=== PATIENT | female | born 1990 | race African-American/Black ===

== ENCOUNTER 2017-05-22 18:09 | Emergency (ER) | payer OTHER ==
[~2017-05-22] VITALS: Ht 165.1 cm; Wt 108.9 kg
[2017-05-22] MEDS ORDERED: ACETAMINOPHEN 500 MG TABLET PO ONE (19:30)
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
[2017-05-22] MEDS ORDERED: CYCL5TAB PO (19:59)
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
[2017-05-22 20:33] VITALS: BP 109/67
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
== END 2017-05-22 20:35 | disposition home or self-care (01) ==
LOC: ER 18:09
DX: S16.1XXA Strain of muscle, fascia and tendon at neck level, initial encounter (principal); M54.5 Low back pain; R07.81 Pleurodynia; V43.52XA Car driver injured in collision with other type car in traffic accident, initial encounter; Y93.89 Activity, other specified; Y99.8 Other external cause status; Y92.410 Unspecified street and highway as the place of occurrence of the external cause
CPT/HCPCS: 71020; 72100; 72125; 81025; 99284-25

== ENCOUNTER 2018-02-10 08:24 | Emergency (ER) | payer OTHER ==
[~2018-02-10] VITALS: Ht 162.6 cm; Wt 88.9 kg
[~2018-02-10 08:24] MED LIST: CYCL5TAB PO
[2018-02-10] MEDS ORDERED: CYCL-331 PO (08:55)
--- NOTE | 2018-02-10 09:01 | PHYS DOC ---
Past History Past Medical History: Asthma Past Surgical History: Other Alcohol Use: None Drug Use: None Adult General Chief Complaint Chief Complaint: BACK PAIN OR INJURY HPI HPI 27-year-old female presents with low back pain. The patient was feeling fine yesterday until the evening she started to have bilateral lower lumbar pain. She is unsure why this started. She was not doing anything extra strenuous or difficulty yesterday. She denies trauma. The pain was too back muscle spasms that intermittently woke her up during the night. [place]. She has taken 4 Advil 2 at a time over the last 12 hours. She has no history of back trauma. She has no other complaints at this time. Review of Systems Review of Systems Constitutional: Denies fever or chills [] Eyes: Denies change in visual acuity, redness, or eye pain [] HENT: Denies nasal congestion or sore throat [] Respiratory: Denies cough or shortness of breath [] Cardiovascular: No additional information not addressed in HPI [] GI: Denies abdominal pain, nausea, vomiting, bloody stools or diarrhea [] : Denies dysuria or hematuria [] Musculoskeletal: Lower back pain [] Integument: Denies rash or skin lesions [] Neurologic: Denies headache, focal weakness or sensory changes [] Endocrine: Denies polyuria or polydipsia [] All other systems were reviewed and found to be within normal limits, except as documented in this note. Current Medications Current Medications Current Medications Medications (Trade) Dose Ordered Sig/[facility] Start Time Stop Time Status Last Admin Dose Admin Ketorolac Tromethamine (Toradol) 60 mg 1X ONCE 02/10/18 09:00 02/10/18 09:01 UNV Allergies Allergies Allergies Coded Allergies Type Severity Reaction Last Updated Verified No Known Drug Allergies 02/10/18 No Physical Exam Physical Exam Constitutional: Well developed, well nourished, no acute distress, non-toxic appearance. [] HENT: Normocephalic, atraumatic, bilateral external ears normal, oropharynx moist, no oral exudates, nose normal. [] Eyes: PERRLA, EOMI, conjunctiva normal, no discharge. [] Neck: Normal range of motion, no tenderness, supple, no stridor. [] Cardiovascular:Heart rate regular rhythm, no murmur [] Lungs & Thorax: Bilateral breath sounds clear to auscultation [] Abdomen: Bowel sounds normal, soft, no tenderness, no masses, no pulsatile masses. [] Skin: Warm, dry, no erythema, no rash. [] Back: bilateral lower lumbar tenderness. [] Extremities: No tenderness, no cyanosis, no clubbing, ROM intact, no edema. R wrist in a brace.[] Neurologic: Alert and oriented X 3, normal motor function, normal sensory function, no focal deficits noted. [] Psychologic: Affect normal, judgement normal, mood normal. [] Current Patient Data Vital Signs Vital Signs Date Time Temp Pulse Resp B/P (MAP) Pulse Ox O2 Delivery O2 Flow Rate FiO2 02/10/18 08:34 98.3 68 16 97 Room Air EKG EKG [] Radiology/Procedures Radiology/Procedures [] Course & Med Decision Making Course & Med Decision Making Pertinent Labs and Imaging studies reviewed. (See chart for details) [] Dragon Disclaimer Dragon Disclaimer This electronic medical record was generated, in whole or in part, using a voice recognition dictation system. Departure Departure: Impression: Primary Impression: Low back pain Disposition: HOME, SELF-CARE Condition: STABLE Patient Instructions: Low Back Sprain with [facility] Additional Instructions: Starting this evening, take 600 mg of ibuprofen a times a day for at least 3 days to calm down your back pain. Take the Cyclobenzaprine as needed. Once the pain is 50% less, start the stretching and strengthening exercises. Scripts Cyclobenzaprine Hcl (CYCLOBENZAPRINE HCL) 10 Mg Tablet 1 TAB PO TID PRN for MUSCLE SPASMS, #30 TAB Prov: KARTIK LEYVA DO 02/10/18 KARTIK LEYVA DO February 10, 2018 09:01
[2018-02-10 09:12] VITALS: BP 108/69
[2018-02-10] MEDS ORDERED: KETOROLAC 60 MG/2 ML VIAL. IM ONE (09:20)
== END 2018-02-10 09:13 | disposition home or self-care (01) ==
LOC: ER 08:24
DX: M54.5 Low back pain (principal); J45.909 Unspecified asthma, uncomplicated
CPT/HCPCS: 96372; 99283; J1885